=== PATIENT | female | born 1980 | race Caucasian/White ===

== ENCOUNTER 2016-04-22 17:31 | Inpatient (IN) | payer OTHER ==
[~2016-04-22] VITALS: Ht 175.3 cm; Wt 123.9 kg
--- NOTE | 2016-04-22 20:18 | ED ORDER SUMMARY ---
..... Patient: ANISH BARRERA OrderSheet [facility] VisitID: [id number] Rowena Reyes [place], [place] [id number], F Registration Date/Time: 04/22/2016 ORDER SHEET Weight: 120.2 kg (stated) Allergies: No Known Drug Allergy GENERAL ORDERS: US Abdomen Limited (No) Urgent (18:03 04/22/2016 Sidney Figueroa) (Ack 18:08 Monsterner) (19:37 Eleno) CBC w Diff Urgent (18:04 04/22/2016 Sidney Figueroa) (Ack 18:08 Kishor) (18:19 SRoberts R.N.) CMP Urgent (18:04 04/22/2016 Sidney Figueroa) (Ack 18:08 Kishor) (18:19 SRoberts R.N.) UA-Culture if indicated Urgent (18:04 04/22/2016 Sidney Figueroa) (Ack 18:08 Kishor) (19:31 [facility]) PT with INR Urgent (18:04 04/22/2016 Sidney Figueroa) (Ack 18:08 Kishor) (18:19 SRoberts R.N.) Lipase Urgent (18:04 04/22/2016 Sidney Figueroa) (Ack 18:08 Kishor) (18:19 SRoberts R.N.) Serum Quantitative Urgent (18:04 04/22/2016 Sidney Figueroa) (Ack 18:08 Kishor) (18:19 SRoberts R.N.) Pulse oximeter (18:04 04/22/2016 Sidney Figueroa) (Ack 18:08 Delrner) (19:20 SRoberts R.N.) MEDICATION ORDERS: IV FLUIDS: IV NS : initial bolus 1000 mL (1000 mL/hr), then none - for X1 (NOW) (18:03 04/22/2016 Sidney Figueroa) (Ack 18:09 SRoberts R.N.) (18:20 SRoberts R.N.) Morphine IV 4 mg (HIGH ALERT MEDICATION, NOW) (18:04 04/22/2016 Sidney Figueroa) (Ack 18:09 oberts R.N.) (18:21 SRoberts R.N.) Zofran IV 4 mg (NOW) (18:04 04/22/2016 Sidney Figueroa) (Ack 18:09 oberts R.N.) (18:20 SRoberts R.N.) IV NS : initial bolus 1000 mL (1000 mL/hr), then none - for X1 (NOW) (19:55 04/22/2016 Sidney Figueroa) (20:36 SRoberge R.N.) Morphine IV 4 mg (HIGH ALERT MEDICATION, NOW) (19:55 04/22/2016 Sidney Figueroa) (20:37 SRoberts R.N.) ORDER SHEET NOTES: [Electronically signed by Lelia Holley R.N. (22:27 04/22/2016)] [Electronically signed by Marck Montoya Dr. (05:17 04/24/2016)] [Electronically locked/signed by Lelia Holley R.N. (22:27 04/22/2016)]
--- NOTE | 2016-04-22 20:18 | ED CLINICAL REPORT ---
Clinical Report - Physicians/Mid Levels [facility] [address] [place] [address] 04/22/2016 17:33 Patient: ANISH BARRERA Arrived- By private vehicle. Historian- patient. HISTORY OF PRESENT ILLNESS Chief Complaint: ABDOMINAL PAIN. At its maximum, severity described as severe. When seen in the E.D., severity described as severe. Modifying factors- worsened by movement. Relieved by rest. This started today and is still present and worsening. It was abrupt in onset and has been constant but is not gone now. It is described as sharp. No radiation. It is described as located in the right upper quadrant. The patient has had nausea. No loss of appetite or vomiting. No additional abdominal pain. No recent travel. Similar symptoms previously: Once. Recent medical care: Not recently seen/assessed. REVIEW OF SYSTEMS No constipation, black stools, hematemesis, bloody stools or skin rash. All systems otherwise negative, except as recorded above. PAST HISTORY See nurses notes. Medications: Clindamycin HCl Oral 300 mg, 4x a day. Lisinopril Oral 5 mg, daily. Glimepiride Oral (Tablet 4 mg) 1 tablet, day. MetFORMIN HCl Oral 1000mg bid . Allergies: No Known Drug Allergy. SOCIAL HISTORY Never smoker. No alcohol use or drug use. No recent travel. Is a local resident. FAMILY HISTORY Negative. ADDITIONAL NOTES The nursing notes have been reviewed. PHYSICAL EXAM Vital Signs: 04/22/2016 17:45 BP: 153/74. HR: 85. RR: 20. O2 saturation: 100%. Temp: 98.6 F. Pain level now: 9/10. Blood pressure normal. Oxygen saturation normal. Appearance: Alert. Oriented X3. Patient in mild distress. Eyes: Pupils equal, round and reactive to light. Eyes normal inspection. ENT: Pharynx normal. No pharyngeal erythema or tonsillar exudate. The mucous membranes are not dry. Neck: Normal inspection. CVS: Normal heart rate and rhythm. Heart sounds normal. Pulses normal. Respiratory: No respiratory distress. Breath sounds normal. Chest nontender. Abdomen: Soft. Moderate tenderness in the right upper quadrant. Bowel sounds normal. No mass. Back: Normal inspection. Skin: Skin warm and dry. Normal skin color. No rash. Normal skin turgor. Extremities: Extremities exhibit normal ROM. No lower extremity edema. LABS, X-RAYS, AND EKG Abdominal Sonogram: (cholelithiasis without cholecystitis. CBD not completely visualized but likley not dilated.). The study was independently viewed by me, interpreted contemporaneously by me and limited due to obesity. Study included the gallbladder. Laboratory Tests: UA-Culture if indicated: (MEKHI: 04/22/2016 19:30) ( [facility] 04/22/2016 19:54) IP Test Result Flag Units (Reference) URINE COLOR YELLOW URINE APPEARANCE CLEAR URINE GLUCOSE TRACE (NEGATIVE) URINE BILIRUBIN NEGATIVE (NEGATIVE) URINE KETONE NEGATIVE (NEGATIVE) URINE SPECIFIC GRAVITY >= 1.030 (1.010-1.030) URINE PH 6.0 (5.0-8.0) URINE PROTEIN NEGATIVE (NEGATIVE) URINE UROBILINOGEN 0.2 EU/dL (0.2-1.0) URINE NITRITE NEGATIVE (NEGATIVE) URINE BLOOD NEGATIVE (NEGATIVE) URINE LEUK ESTERASE NEGATIVE (NEGATIVE) CBC w Diff: (MEKHI: 04/22/2016 18:25) ( [facility] 04/22/2016 19:05) Final results Test Result Flag Units (Reference) WHITE BLOOD COUNT 8.0 K/uL (4.5-11.5) RED BLOOD COUNT 5.03 M/uL (4.00-5.20) HEMOGLOBIN 15.6 gm/dL (12.0-16.0) HEMATOCRIT 46.2 H % (36.0-46.0) MEAN CELL VOLUME 92 fL (80-100) MEAN CORPUSCULAR HGB 31 pg (26-34) MEAN CORPUSCULAR HGB CONC 34 g/dL (31-37) RED CELL DISTRIBUTION WIDTH 14.9 H % (11.6-14.8) PLATELET COUNT 452 H K/uL (150-400) NEUTROPHIL % 52.0 % (50-75) LYMPH % 35.8 % (25-40) MONO % 8.9 % (3-14) EOSINOPHIL % 2.2 % (0-4) BASOPHIL % 1.1 % (0-2) PT with INR: (MEKHI: 04/22/2016 18:25) ( MsgRcvd 04/22/2016 19:16) Final results Test Result Flag Units (Reference) INR 1.1 (0.8-1.2) Low Intensity Therapy: INR 1.5-2.0 PT range 18.5-23.1Mod.Intensity Therapy: INR 2.0-3.0 PT range 23.1-31.5High Intensity Therapy: INR 2.5-3.5 PT range 27.4-35.5High Intensity Therapy 2: INR 3.0-4.0 PT range 31.5-39.3 CMP: (MEKHI: 04/22/2016 18:25) ( MsgRcvd 04/22/2016 19:20) Final results Test Result Flag Units (Reference) GLUCOSE 207 H mg/dL (70-110) BUN 10 mg/dL (7-18) CREATININE 0.8 mg/dL (0.6-1.3) Estimated GFR >60 mL/min Estimated GFR- >60 mL/min Note: Persistent reduction over 3 months in eGFR<60 mL/min/1.73 m2 defines CKD. Patients with eGFR values>=60 mL/min/1.73 m2 may also have CKD if evidence ofpersistent proteinuria. Additional information may be foundat www.kidney.org. SODIUM 137 mmol/L (136-145) POTASSIUM 4.1 mmol/L (3.5-5.1) CHLORIDE 102 mmol/L (98-107) CARBON DIOXIDE 22 mmol/L (21-32) CALCIUM 9.1 mg/dL (8.5-10.1) TOTAL PROTEIN 7.7 g/dL (6.4-8.2) ALBUMIN 3.6 g/dL (3.3-5.0) BILIRUBIN, TOTAL 0.2 mg/dL (0.0-1.0) ALKALINE PHOSPHATASE 82 U/L (46-116) AST (SGOT) 59 H U/L (15-37) ALT (SGPT) 61 U/L (12-78) LIPASE 1772 H U/L (73-393) BETA HCG, QUANTITATIVE <1 mIU/mL REFERENCE RANGE:Adult Males: <2 mIU/mLNon- Females: <6 mIU/mL Females:Approximate Approximate hCGGestational Age Range (mIU/mL) 0-1 week 0-501-2 weeks 40-3002-3 weeks 100-88907-7 weeks 500-51116-0 months 5,000-200,0002-3 months 10,000-100,0002nd trimester 3,000-50,0003rd trimester 1,000-50,000 . PROGRESS AND PROCEDURES Course of Care: the patient is a pleasant 36-year-old female presenting for evaluation of right upper quadrant abdominal pain. Patient is in a mild amount of distress however does not appear toxic. At this time differential diagnosis includes acute cholecystitis,acute pancreatitis,and renal colic/pyelonephritis. Pain medication as well as nausea medicationwith laboratory studies and imaging at been ordered. Patient is agreeable to the treatment and plan. Ultrasound would be the test of choice at this time asbiliary pathology is the highest on the differential diagnosis. Workup shows patient is to have elevation in lipase. Pain has been improved while here in the emergency department. Went to evaluate the patient however patient still appears to be mildly uncomfortable. Had a long discussion with patient in regards to pancreatitis andgeneral management of this disease entity. The patient was encouraged to be admitted to the hospital forIV hydration and bowel rest. Eventually, patient was agreeable to the treatment and plan. Discussed with patient workup and diagnosis here in the emergency department as well as plan of care. All questions have been answered. Discussed case with the hospitalist who will admit the patient. No further recommendations given Patient will be treated aggressively with hydration as well as bowel rest. No evidence ofacute cholecystitis on ultrasound. No evidence of ascending cholangitisin addition toultrasound results. Disposition: Observation in Acute Care. CLINICAL IMPRESSION acute pancreatitis acute nausea and vomiting cholelithiasis without cholecystitis. (Electronically signed by Marck Montoya Dr. 04/24/2016 5:17)
--- NOTE | 2016-04-22 20:18 | ED CLINICAL REPORT ---
Clinical Report - Physicians/Mid Levels [facility] [address] [place] [address] 04/22/2016 17:33 Patient: ANISH BARRERA Arrived- By private vehicle. Historian- patient. HISTORY OF PRESENT ILLNESS Chief Complaint: ABDOMINAL PAIN. At its maximum, severity described as severe. When seen in the E.D., severity described as severe. Modifying factors- worsened by movement. Relieved by rest. This started today and is still present and worsening. It was abrupt in onset and has been constant but is not gone now. It is described as sharp. No radiation. It is described as located in the right upper quadrant. The patient has had nausea. No loss of appetite or vomiting. No additional abdominal pain. No recent travel. Similar symptoms previously: Once. Recent medical care: Not recently seen/assessed. REVIEW OF SYSTEMS No constipation, black stools, hematemesis, bloody stools or skin rash. All systems otherwise negative, except as recorded above. PAST HISTORY See nurses notes. Medications: Clindamycin HCl Oral 300 mg, 4x a day. Lisinopril Oral 5 mg, daily. Glimepiride Oral (Tablet 4 mg) 1 tablet, day. MetFORMIN HCl Oral 1000mg bid . Allergies: No Known Drug Allergy. SOCIAL HISTORY Never smoker. No alcohol use or drug use. No recent travel. Is a local resident. FAMILY HISTORY Negative. ADDITIONAL NOTES The nursing notes have been reviewed. PHYSICAL EXAM Vital Signs: 04/22/2016 17:45 BP: 153/74. HR: 85. RR: 20. O2 saturation: 100%. Temp: 98.6 F. Pain level now: 9/10. Blood pressure normal. Oxygen saturation normal. Appearance: Alert. Oriented X3. Patient in mild distress. Eyes: Pupils equal, round and reactive to light. Eyes normal inspection. ENT: Pharynx normal. No pharyngeal erythema or tonsillar exudate. The mucous membranes are not dry. Neck: Normal inspection. CVS: Normal heart rate and rhythm. Heart sounds normal. Pulses normal. Respiratory: No respiratory distress. Breath sounds normal. Chest nontender. Abdomen: Soft. Moderate tenderness in the right upper quadrant. Bowel sounds normal. No mass. Back: Normal inspection. Skin: Skin warm and dry. Normal skin color. No rash. Normal skin turgor. Extremities: Extremities exhibit normal ROM. No lower extremity edema. LABS, X-RAYS, AND EKG Abdominal Sonogram: (cholelithiasis without cholecystitis. CBD not completely visualized but likley not dilated.). The study was independently viewed by me, interpreted contemporaneously by me and limited due to obesity. Study included the gallbladder. Laboratory Tests: UA-Culture if indicated: (MEKHI: 04/22/2016 19:30) ( [facility] 04/22/2016 19:54) IP Test Result Flag Units (Reference) URINE COLOR YELLOW URINE APPEARANCE CLEAR URINE GLUCOSE TRACE (NEGATIVE) URINE BILIRUBIN NEGATIVE (NEGATIVE) URINE KETONE NEGATIVE (NEGATIVE) URINE SPECIFIC GRAVITY >= 1.030 (1.010-1.030) URINE PH 6.0 (5.0-8.0) URINE PROTEIN NEGATIVE (NEGATIVE) URINE UROBILINOGEN 0.2 EU/dL (0.2-1.0) URINE NITRITE NEGATIVE (NEGATIVE) URINE BLOOD NEGATIVE (NEGATIVE) URINE LEUK ESTERASE NEGATIVE (NEGATIVE) CBC w Diff: (MEKHI: 04/22/2016 18:25) ( [facility] 04/22/2016 19:05) Final results Test Result Flag Units (Reference) WHITE BLOOD COUNT 8.0 K/uL (4.5-11.5) RED BLOOD COUNT 5.03 M/uL (4.00-5.20) HEMOGLOBIN 15.6 gm/dL (12.0-16.0) HEMATOCRIT 46.2 H % (36.0-46.0) MEAN CELL VOLUME 92 fL (80-100) MEAN CORPUSCULAR HGB 31 pg (26-34) MEAN CORPUSCULAR HGB CONC 34 g/dL (31-37) RED CELL DISTRIBUTION WIDTH 14.9 H % (11.6-14.8) PLATELET COUNT 452 H K/uL (150-400) NEUTROPHIL % 52.0 % (50-75) LYMPH % 35.8 % (25-40) MONO % 8.9 % (3-14) EOSINOPHIL % 2.2 % (0-4) BASOPHIL % 1.1 % (0-2) PT with INR: (MEKHI: 04/22/2016 18:25) ( MsgRcvd 04/22/2016 19:16) Final results Test Result Flag Units (Reference) INR 1.1 (0.8-1.2) Low Intensity Therapy: INR 1.5-2.0 PT range 18.5-23.1Mod.Intensity Therapy: INR 2.0-3.0 PT range 23.1-31.5High Intensity Therapy: INR 2.5-3.5 PT range 27.4-35.5High Intensity Therapy 2: INR 3.0-4.0 PT range 31.5-39.3 CMP: (MEKHI: 04/22/2016 18:25) ( MsgRcvd 04/22/2016 19:20) Final results Test Result Flag Units (Reference) GLUCOSE 207 H mg/dL (70-110) BUN 10 mg/dL (7-18) CREATININE 0.8 mg/dL (0.6-1.3) Estimated GFR >60 mL/min Estimated GFR- >60 mL/min Note: Persistent reduction over 3 months in eGFR<60 mL/min/1.73 m2 defines CKD. Patients with eGFR values>=60 mL/min/1.73 m2 may also have CKD if evidence ofpersistent proteinuria. Additional information may be foundat www.kidney.org. SODIUM 137 mmol/L (136-145) POTASSIUM 4.1 mmol/L (3.5-5.1) CHLORIDE 102 mmol/L (98-107) CARBON DIOXIDE 22 mmol/L (21-32) CALCIUM 9.1 mg/dL (8.5-10.1) TOTAL PROTEIN 7.7 g/dL (6.4-8.2) ALBUMIN 3.6 g/dL (3.3-5.0) BILIRUBIN, TOTAL 0.2 mg/dL (0.0-1.0) ALKALINE PHOSPHATASE 82 U/L (46-116) AST (SGOT) 59 H U/L (15-37) ALT (SGPT) 61 U/L (12-78) LIPASE 1772 H U/L (73-393) BETA HCG, QUANTITATIVE <1 mIU/mL REFERENCE RANGE:Adult Males: <2 mIU/mLNon- Females: <6 mIU/mL Females:Approximate Approximate hCGGestational Age Range (mIU/mL) 0-1 week 0-501-2 weeks 40-3002-3 weeks 100-02903-0 weeks 500-80511-5 months 5,000-200,0002-3 months 10,000-100,0002nd trimester 3,000-50,0003rd trimester 1,000-50,000 . PROGRESS AND PROCEDURES Course of Care: the patient is a pleasant 36-year-old female presenting for evaluation of right upper quadrant abdominal pain. Patient is in a mild amount of distress however does not appear toxic. At this time differential diagnosis includes acute cholecystitis,acute pancreatitis,and renal colic/pyelonephritis. Pain medication as well as nausea medicationwith laboratory studies and imaging at been ordered. Patient is agreeable to the treatment and plan. Ultrasound would be the test of choice at this time asbiliary pathology is the highest on the differential diagnosis. Workup shows patient is to have elevation in lipase. Pain has been improved while here in the emergency department. Went to evaluate the patient however patient still appears to be mildly uncomfortable. Had a long discussion with patient in regards to pancreatitis andgeneral management of this disease entity. The patient was encouraged to be admitted to the hospital forIV hydration and bowel rest. Eventually, patient was agreeable to the treatment and plan. Discussed with patient workup and diagnosis here in the emergency department as well as plan of care. All questions have been answered. Discussed case with the hospitalist who will admit the patient. No further recommendations given Patient will be treated aggressively with hydration as well as bowel rest. No evidence ofacute cholecystitis on ultrasound. No evidence of ascending cholangitisin addition toultrasound results. Disposition: Observation in Acute Care. CLINICAL IMPRESSION acute pancreatitis acute nausea and vomiting cholelithiasis without cholecystitis. (Electronically signed by Marck Montoya Dr. 04/24/2016 5:17)
--- NOTE | 2016-04-22 20:18 | ED NURSING NOTES ---
Clinical Report - Nurses [facility] [address] [place] [address] 04/22/2016 17:33 Patient: ANISH BARRERA TRIAGE Triage time 17:42. Acuity: LEVEL 3. Chief Complaint: ABDOMINAL PAIN and NAUSEA. Alert. No acute distress. NEFTALI COMA SCORE: Neftali Coma Scale: 15- eyes open spontaneously (4); best verbal response- oriented x 4 (5); best motor response- obeys commands (6). --17:52 Lelia Holley R.N. 17:45 04/22/16. BP: 153/74. HR: 85. RR: 20. O2 saturation: 100%. Temp: 98.6 F. Pain level now: 9/10. --17:52 Lelia Holley R.N. 17:45 04/22/16. BP: 153/74. HR: 85. RR: 20. O2 saturation: 100%. Temp: 98.6 F. Pain level now: 9/10. --17:52 Lelia Holley R.N. Weight: 120.2 kg stated. Height/Length: 69 inches Per Patient. BMI: 39.2. --17:51 Lelia Holley R.N. Medications MetFORMIN HCl Oral 1000mg bid . --17:46 Lelia Holley R.N. Glimepiride Oral (Tablet 4 mg) 1 tablet, day. --17:47 Lelia Holley R.N. Lisinopril Oral 5 mg, daily. --17:48 Lelia Holley R.N. Clindamycin HCl Oral 300 mg, 4x a day. --17:49 Lelia Holley R.N. Medication/allergy information source: the patient. --17:52 Lelia Holley R.N. Allergies No Known Drug Allergy. --17:48 Lelia Holley R.N. History Arrived by private vehicle. Historian: patient and family. Accompanied by family. Primary physician (lisseth). This started today. She has had nausea and abdominal pain. No vomiting, diarrhea or constipation. Last oral intake by patient was today 1 hour ago. Treatment [employer]: Took ibuprofen. (vicodin at 1500). PAST MEDICAL HX: Diabetes mellitus. Immunizations: status is unknown. Last normal menstrual period- Apr 07. ( htn, gall stones). SURGERY HX: . SOCIAL HX: Never smoker. No alcohol use or drug use. FALL RISK ASSESSMENT: Fall risk assessment completed. No fall risk identified. NUTRITIONAL RISK ASSESSMENT: The nutritional risk assessment revealed no deficiencies. FUNCTIONAL ASSESSMENT: Functional assessment: no impairments noted. LEARNING NEEDS ASSESSMENT: The learning needs assessment revealed no barriers. SKIN INTEGRITY ASSESSMENT: Skin integrity risk assessment completed. No skin integrity risk identified. --17:52 Lelia Holley R.N. Interventions ID band on patient. To room. --17:52 Lelia Holley R.N. PHYSICAL ASSESSMENT Ambulatory to room. Patient gowned. GENERAL / NEURO / PSYCH: Alert. Oriented X 4. Appears in pain and anxious. HEENT: Mucous membranes are pink. RESPIRATORY: Respirations not labored. CVS: Capillary refill less than 2 seconds. GI / : Abdominal tenderness. SKIN: Skin is warm and dry. --17:53 Lelia Holley R.N. NURSING PROGRESS NOTES Patient gowned. Head of bed elevated. Two patient identifiers checked. Call light placed in reach. Side rails up x 1. Bed placed in lowest position. Brakes of bed on. Patient ready for evaluation- chart flagged. --17:53 Lelia Holley R.N. 18:15 04/22/2016 Site #1 started via IV in the right antecubital space with an 20g angiocath, with aseptic technique and good blood return; one attempt. Blood drawn: rainbow set. Labeled in the presence of the patient and sent to the lab. Saline lock flushed with saline. --18:20 Lelia Holley R.N. 18:15 04/22/2016 Morphine IVP 4 mg given over 1 minute(s) via site #1. Allergies verified, confirmed 5 rights and sedative warning given to the patient. IV patency established. IV site checked: no pain, redness, or swelling. IV flushed thoroughly pre- and post-medication administration. IVP given by RN. --18:21 Lelia Holley R.N. 18:20 04/22/2016 Started bag #1 1000 mL IV Fluids IV NS (Saline); at 1000 mL/hr over 1 hour(s) via site #1 via IV pump. Allergies verified and confirmed 5 rights. IV patency established. IV site checked: no pain, redness, or swelling. IV flushed thoroughly pre- and post-medication administration. --18:20 Lelia Holley R.N. 18:20 04/22/2016 Zofran (Ondansetron HCl) IVP 4 mg given over 1 minute(s) via site #1. Allergies verified and confirmed 5 rights. IV patency established. IV site checked: no pain, redness, or swelling. IV flushed thoroughly pre- and post-medication administration. --18:20 Lelia Holley R.N. 19:25 04/22/2016 IV Fluids IV NS Discontinued: bag #1 infused. Total amount infused: 1000 mL. IV patency established. IV site checked: no pain, redness, or swelling. IV flushed thoroughly. --20:14 Lelia Holley R.N. 19:32 04/22/16. Patient ID band checked for patient name: patient confirmed. Instructions provided to collect clean catch urine and patient verbalized understanding. Clean catch urine collected with return of yellow-colored clear urine; sample sent to lab for urinalysis and culture. Specimen labeled in the presence of the patient. --19:32 Lelia Holley R.N. 20:32 04/22/2016 Morphine IVP 4 mg given over 1 minute(s) via site #1. Allergies verified, confirmed 5 rights and sedative warning given to the patient. IV patency established. IV site checked: no pain, redness, or swelling. IV flushed thoroughly pre- and post-medication administration. IVP given by RN. --20:37 Lelia Holley R.N. 20:36 04/22/2016 Started bag #1 1000 mL IV Fluids IV NS (Saline); at 200 mL/hr over 5 hour(s) via site #1 via IV pump. Allergies verified and confirmed 5 rights. IV patency established. IV site checked: no pain, redness, or swelling. IV flushed thoroughly pre- and post-medication administration. --20:36 Lelia Holley R.N. ( Dr at the bedside speaking with the patient.). --20:40 Lelia Holley R.N. 20:50 04/22/16. BP: 147/66. HR: 94. RR: 18. O2 saturation: 98% on room air. Pain level now: 08/27. --20:51 Lelia Holley R.N. 21:27 04/22/16. ( Attempted to give report, nurse unavailable.). --21:27 Lelia Holley R.N. 21:35 04/22/2016 Site #[address] upon admission; patent, no pain and no signs of infection or infiltration. Good blood return present; flushes easily. --21:35 Lelia Holley R.N. 21:35 04/22/2016 IV Fluids IV NS Continued: at the rate of 200 mL/hr. 800 mL remaining bag #2. IV patency established. IV site checked: no pain, redness, or swelling. IV flushed thoroughly. --21:35 Lelia Holley R.N. DISPOSITION / DISCHARGE Patient's personal items include: shirt, pants, undergarments, socks, shoes, glasses, jewelry and purse; items were placed in belongings bag and transported with the patient. Collection of belongings was witnessed by 1 nurse. --21:23 Lelia Holley R.N. 21:23 04/22/16. BP: 129/78. HR: 88. RR: 18. O2 saturation: 99% on room air. Pain level now: 05/28. 20:50 04/22/16. BP: 147/66. HR: 94. RR: 18. O2 saturation: 98% on room air. Pain level now: 08/27. 17:45 04/22/16. BP: 153/74. HR: 85. RR: 20. O2 saturation: 100%. Temp: 98.6 F. Pain level now: 10/28. --21:24 Lelia Holley R.N. Admitted to Acute Care. --21:24 Lelia Holley R.N. Report was given to a nurse via a phone call. Report included patient's care, treatment, medications, reviewed medication reconcilliation, and condition (including any recent changes or anticipated changes). Report was acknowledged and care was transferred. (JONATHAN Lund). --21:34 Lelia Holley R.N. Locked/Released at 04/22/2016 22:27 by Lelia Holley R.N.
--- NOTE | 2016-04-22 20:18 | ED ORDER SUMMARY ---
..... Patient: ANISH BARRERA OrderSheet [facility] VisitID: [id number] [address] Reyes [place], [place] [id number] 36y, F Registration Date/Time: 04/22/2016 ORDER SHEET Weight: 120.2 kg (stated) Allergies: No Known Drug Allergy GENERAL ORDERS: US Abdomen Limited (No) Urgent (18:03 04/22/2016 Sidney Figueroa) (Ack 18:08 Monsterner) (19:37 Eleno) CBC w Diff Urgent (18:04 04/22/2016 Sidney Figueroa) (Ack 18:08 Kishor) (18:19 SRoberts R.N.) CMP Urgent (18:04 04/22/2016 Sidney Figueroa) (Ack 18:08 Kishor) (18:19 SRoberts R.N.) UA-Culture if indicated Urgent (18:04 04/22/2016 Sidney Figueroa) (Ack 18:08 Kishor) (19:31 [facility] [employer]) PT with INR Urgent (18:04 04/22/2016 Sidney Figueroa) (Ack 18:08 Kishor) (18:19 SRoberts R.N.) Lipase Urgent (18:04 04/22/2016 Sidney Figueroa) (Ack 18:08 Kishor) (18:19 SRoberts R.N.) Serum Quantitative Urgent (18:04 04/22/2016 Sidney Figueroa) (Ack 18:08 Kishor) (18:19 SRoberts R.N.) Pulse oximeter (18:04 04/22/2016 Sidney Figueroa) (Ack 18:08 Delrner) (19:20 SRoberts R.N.) MEDICATION ORDERS: IV FLUIDS: IV NS : initial bolus 1000 mL (1000 mL/hr), then none - for X1 (NOW) (18:03 04/22/2016 Sidney Figueroa) (Ack 18:09 SRoberts R.N.) (18:20 SRoberts R.N.) Morphine IV 4 mg (HIGH ALERT MEDICATION, NOW) (18:04 04/22/2016 Sidney Figueroa) (Ack 18:09 oberts R.N.) (18:21 SRoberts R.N.) Zofran IV 4 mg (NOW) (18:04 04/22/2016 Sidney Figueroa) (Ack 18:09 oberts R.N.) (18:20 SRoberts R.N.) IV NS : initial bolus 1000 mL (1000 mL/hr), then none - for X1 (NOW) (19:55 04/22/2016 Sidney Figueroa) (20:36 SRoberge R.N.) Morphine IV 4 mg (HIGH ALERT MEDICATION, NOW) (19:55 04/22/2016 Sidney Figueroa) (20:37 SRoberts R.N.) ORDER SHEET NOTES: [Electronically signed by Lelia Holley R.N. (22:27 04/22/2016)] [Electronically signed by Marck Montoya Dr. (05:17 04/24/2016)] [Electronically locked/signed by Lelia Holley R.N. (22:27 04/22/2016)]
--- NOTE | 2016-04-22 21:14 | History & Physical Report ---
Information Source Information Source: Self, Spouse/Partner Reliability: Good History Chief Complaint abdominal pain History of Present Illness Patient is a 36 year old female that is presenting with a one day history of abdominal pain. Patient had been in her usual state of health when she had a sudden increase in abdominal pain with no real inciting factor. Patient had been recently diagnosed with gallstones in [facility] and the patient and her doctors thought it would be best if the patient had her gallbladder removed. Patient was in the process of changing her residence therefore she decided to postpone the surgery for a later date. Patient was not having any problems since her last surgery appointment and was doing relatively well. However yesterday she had a sudden onset of abdominal pain that was later followed by anorexia, nausea, and vomiting. Patient then felt like she was very drained and did not have any energy. Patient has no other complaints at the moment and is otherwise hemodynamically stable. Patient History 1. Nausea and vomiting 2. Gallstone 3. Diabetes mellitus Social History Patient is a 36 year old female who lives with her and daughter. She is a security surveillance personnel. Patient does not smoke, drinks socially and does not use any illicit substances. Patient is up to date on all her health maintenance visits except for vision. Family History Family history was reviewed; no changes noted. Advance Directive None Medications and Allergies Medications Home Medications Metformin 1000 mg bid Glyburide Lisinopril 5 mg daily Lantus 15 units qpm Current Medications Sig/Vitaliy Start time Last Medication Dose Route Stop Time Status Admin Lisinopril 5 MG DAILY 04/23 0900 AC PO Insulin Human Lispro See Dose ACHS 04/23 0730 AC Insts (1) SC Pantoprazole Sodium 40 MG DAILY@0600 04/23 0600 AC 04/23 IV 0621 Clindamycin HCl 300 MG Q6HR 04/23 0015 AC 04/23 PO 0621 Acetaminophen 650 MG Q6H PRN 04/22 2114 AC PO Morphine Sulfate 1 MG Q4H PRN 04/22 2114 AC IV Ondansetron HCl 4 MG Q6H PRN 04/22 2114 AC PO Sodium Chloride 1,000 ML ASDIRECTED 04/22 2114 AC 04/23 IV 0236 Dose Instructions: (1)Insulin Human Lispro: LOW DOSE: ACCUCHECK AND SLIDING SCALE >>To change sliding scale DISCONTINUE this order and enter a NEW order. Thanks< Allergies Coded Allergies: NKA (04/22/16) Review of Systems Constitutional Malaise. Denies: Fever, Chills, Sweats, Weakness, Other. Eyes Denies: Pain, Vision Change, Conjunctival Inflammation, Eyelid Inflammation, Redness, Other. ENT Denies: Ear Pain, Ear Discharge, Nose Pain, Nasal Discharge, Nasal Congestion, Mouth Pain, Mouth Swelling, Throat Pain, Throat Swelling, Other. Respiratory Denies: Cough, Dry, SOB w/exertion, Wheezing, Hemoptysis, Pleuritic Pain, Sputum , Other. Cardiovascular Denies: Chest Pain, Palpitations, Orthopnea, PND, Edema, Light-headedness, Other. Gastrointestinal Nausea, Vomiting, Abdominal Pain. Denies: Diarrhea, Constipation, Melena, Hematochezia, Other. Genitourinary Denies: Dysuria, Frequency, Incontinence, Hematuria, Retention, Other. Musculoskeletal Denies: Neck Pain, Shoulder Pain, Arm Pain, Back Pain, Hand Pain, Leg Pain, Foot Pain, Other. Skin Denies: Rash, Lesions, Jaundice, Bruising, Other. Neurological Denies: Weakness, Numbness, Incoordination, Change in speech, Confusion, Seizures, Other. Physical Exam Vital Signs / I&Os Vital Signs Date Time Temp Pulse Resp B/P Pulse O2 O2 Flow FiO2 Ox Delivery Rate 04/23 0706 97.9 85 16 134/79 95 Room Air 0.0 04/23 0158 98.1 75 16 138/79 95 Room Air 04/22 2157 98.1 77 16 173/92 96 Room Air I&O 04/22 0800 / 1600 04/23 0000 Intake Total Output Total Balance General Appearance Alert, Oriented X3, No acute distress HEENT Normal exam, Atraumatic, Moist mucous membranes Lungs Clear to auscultation, Normal air movement Neck Supple, No JVD, No thyromegaly, No lymphadenopathy, 2+ carotid pulse wo bruit Cardiovascular Regular rate and rhythm, Normal S1 and S2, No murmurs, gallops, rubs Abdomen Normal bowel sounds, Soft, No tenderness, No guarding, No rebound Extremities No cyanosis, No clubbing, No edema, Normal pulses, No tenderness, Strength = upper ext's, Strength = lower ext's Skin No Rashes, No Breakdown Neurological Normal gait, Normal speech, Sensation intact, Reflexes 2+ and equal , Strength 5/5 x4 ext's Psych/Mental Status Mental status normal, Mood normal Assessment and Plan Problem List 1. Acute pancreatitis Plan - patient has evidnece of elevaed lipase with clinical signs of pancreatitis will treat her for the same - given bili, ast, alt and alk phos it is unlikely that the patient has retained gallstone - will keep pt npo, will give liberal iv fluids - will continue to trend lipase 2. Nausea and vomiting Plan - secondary to pancreatitis - will keep pt npo and have anti emetics on board 3. Diabetes mellitus Plan - Pt has an established diangosis of diabetesl mellitus - will hold off metformin and glyburide until pancrease is less inflammed - will hold off on lantus dose given npo status - sliding scale coverage while in patient 4. Gallstone Plan - Pt has a history of gallstones with us evidence of gallstones - will continue to monitor lfts - will put consult in cholecystectomy once pancreatitis is resolved 5. Hypertension Plan - established - will continue home dose of linsinopril 5 mg
--- NOTE | 2016-04-22 21:26 | DIAGNOSTIC IMAGING REPORT ---
PROCEDURE: US ABDOMEN ULTRASOUND-LIMITED INDICATION: RUQ ABDO PAIN TECHNIQUE: Ortega scale and color Doppler sonographic images were obtained of the right upper quadrant. COMPARISON: None. FINDINGS: The liver is normal in size, contour, and echotexture. No mass or biliary dilatation. The gallbladder wall is normal thickness measuring 2.1 mm. The gallbladder is distended and contains dependently layering sludge and granular hyperechoic material, either tiny stones or hyperechoic bile. No pericholecystic fluid or Levine's sign. The common duct is normal caliber and 4.2 mm. No evidence of choledocholithiasis. The visible portion of the inferior vena cava, abdominal aorta, and portal vein appear normal with appropriate direction of flow in the portal vein. The right kidney is normal measuring 14.1 x 5.4 x 6.3 cm. No free fluid in the right upper quadrant. IMPRESSION: 1. No sonographic evidence of acute cholecystitis. 2. Dependently layering, nonobstructive gallbladder sludge and likely small stones or hyperechoic bile.
[2016-04-22 21:57] VITALS: BP 173/92
[2016-04-22] MEDS ORDERED: PRINIVIL5 MG PO (23:20)
[2016-04-22] MEDS ORDERED: GLIMEPIRIDE1 MG PO (23:22)
[2016-04-22] MEDS ORDERED: CLINDAMYCIN HC300 MG PO (23:22)
[2016-04-22] MEDS ORDERED: METFORMIN HCL500 MG PO (23:23)
[2016-04-22] MEDS ORDERED: LANTUS SOL100 UNITS/ SC (23:24)
[2016-04-23] VITALS (11 sets, daily range): BP systolic 134–160; BP diastolic 75–87
--- NOTE | 2016-04-23 14:02 | CONSULTATION REPORT ---
DATE OF CONSULTATION: 04/23/2016 CHIEF COMPLAINT: 1. Abdominal pain HISTORY OF PRESENT ILLNESS: The patient is a 36-year-old woman who presented with a 1-day history of abdominal pain. She had a previous admission elsewhere for gallstone pancreatitis, and these symptoms are very similar. This admission was in 2015. At that point, she postponed her surgery, and the symptoms have now recurred. Her lipase on admission was elevated, but her pancreatic enzymes have normalized as of today, and she was referred for consideration of surgery. At the time of onset, the patient had anorexia, nausea, and vomiting and sudden onset of pain, with lack of energy. MEDICAL/SURGICAL HISTORY: Past medical history includes diabetes mellitus. MEDICATIONS: 1. Metformin 1 g b.i.d. 2. Glyburide, dose unknown. 3. Lisinopril 5 mg daily. 4. Lantus 15 units q.p.m. ALLERGIES: 1. NONE TO MEDICATIONS. SOCIAL HISTORY: The patient lives with her and daughter. She works as a security surveillance person. She does not smoke cigarettes. She drinks socially. FAMILY HISTORY: Unchanged. There are no hereditary diseases noted. REVIEW OF SYSTEMS: A multipoint review of systems was obtained by Dr. Fischer on 04/23/2016, and is reviewed at this time. The patient reports no other symptoms other than the ones described by the patient. PHYSICAL EXAMINATION: GENERAL: The patient is alert and cooperative. Her mental status was normal. She is oriented to time and place. VITAL SIGNS: Her initial vital signs: Temperature 98.1, pulse of 81, respirations 18, blood pressure 139/79, room air saturation 97% on room air. HEENT: His ears and nose demonstrated no gross external lesions. Eyes are equal. She is anicteric. NECK: Without palpable masses or thyromegaly. CHEST: Clear, without wheeze or rales. HEART: Regular, without murmur or gallop. ABDOMEN: Reveals no localized tenderness at this point. Bowel sounds are active. She is nondistended. There was no hepatosplenomegaly. EXTREMITIES: Symmetric. She moves without restriction. LAB/IMAGING: Lab tests were reviewed. White count was 8.6 today, hemoglobin and hematocrit 10.3 and 30.8. Her glucose was 207 on admission; it is 102 at this point. Her lipase has normalized from 1772 down to 251. IMPRESSION: 1. Resolved gallstone pancreatitis PLAN: I recommended the patient undergo a laparoscopic cholecystectomy with cholangiography. I made her aware of the nature of this operation as well as alternatives, benefits and risks. Risks discussed included infection, bleeding, scars, pain, damage to local structures, common duct stones, possible postop pancreatitis or ERCP. The patient desires to proceed as described to her.
--- NOTE | 2016-04-23 14:31 | Progress Note ---
Subjective General Pt seen and examined. Patient has no complaints currently and is resting comfortably. Patients lipase has normalized overnight and she has significantly reduced abdominal pain. Given patients course, patient will go for laprascopic cholecystectomy this afternoon. Constitutional Denies: Fever, Chills, Sweats, Weakness, Malaise, Other. Eyes Denies: Pain, Vision Change, Conjunctival Inflammation, Eyelid Inflammation, Redness, Other. ENT Denies: Ear Pain, Ear Discharge, Nose Pain, Nasal Discharge, Nasal Congestion, Mouth Pain, Mouth Swelling, Throat Pain, Throat Swelling, Other. Respiratory Denies: Cough, Dry, SOB w/exertion, Wheezing, Hemoptysis, Pleuritic Pain, Sputum , Other. Cardiovascular Denies: Chest Pain, Palpitations, Orthopnea, PND, Edema, Light-headedness, Other. Gastrointestinal Denies: Nausea, Vomiting, Abdominal Pain, Diarrhea, Constipation, Melena, Hematochezia, Other. Genitourinary Denies: Dysuria, Frequency, Incontinence, Hematuria, Retention, Other. Musculoskeletal Denies: Neck Pain, Shoulder Pain, Arm Pain, Back Pain, Hand Pain, Leg Pain, Foot Pain, Other. Skin Denies: Rash, Lesions, Jaundice, Bruising, Other. Physical Exam Vital Signs / I&Os Vital Signs Date Time Temp Pulse Resp B/P Pulse O2 O2 Flow FiO2 Ox Delivery Rate 04/23 1202 98.1 81 18 139/79 97 Room Air 0.0 / 0953 95 / 0706 97.9 85 16 134/79 95 Room Air 0.0 / 0158 98.1 75 16 138/79 95 Room Air / 2157 98.1 77 16 173/92 96 Room Air I&O / 0800 03/05 1600 03/06 0000 Intake Total Output Total Balance General Appearance Alert, Oriented X3, No acute distress HEENT Atraumatic, PERRLA, EOMI, Moist mucous membranes Lungs Clear to auscultation, Normal air movement Neck Supple, No JVD, No masses, No thyromegaly, No lymphadenopathy, 2+ carotid pulse wo bruit Cardiovascular Regular rate and rhythm, Normal S1 and S2, No murmurs, gallops, rubs Abdomen Soft, No tenderness, No guarding, No rebound, No masses, No hepatosplenomegaly Extremities No cyanosis, No edema, Normal pulses, No tenderness Skin No Breakdown, No Significant Lesions Neurological Normal speech, Normal tone, Sensation intact, Cranial nerves intact , No lateralizing signs LAB Results Laboratory Tests 04/22 04/22 04/23 1825 1930 0520 Chemistry Plasma Sodium (136 - 145 mmol/L) 137 141 Plasma Potassium (3.5 - 5.1 mmol/L) 4.1 4.0 Plasma Chloride (98 - 107 mmol/L) 102 109 CO2 (Enzymatic) (21 - 32 mmol/L) 22 22 BUN (7 - 18 mg/dL) 10 5 Creatinine (0.6 - 1.3 mg/dL) 0.8 0.6 Est GFR ( Amer) (mL/min) >60 >60 Est GFR (Non-Af Amer) (mL/min) >60 >60 Glucose (70 - 110 mg/dL) 207 102 Plasma Calcium (8.5 - 10.1 mg/dL) 9.1 8.4 Plasma Magnesium (1.8 - 2.4 mg/dL) 1.7 Total Bilirubin (0.0 - 1.0 mg/dL) 0.2 0.2 AST (15 - 37 U/L) 59 41 ALT (12 - 78 U/L) 61 64 Alkaline Phosphatase (46 - 116 U/L) 82 73 Total Protein (6.4 - 8.2 g/dL) 7.7 6.5 Albumin (3.3 - 5.0 g/dL) 3.6 3.0 Lipase (73 - 393 U/L) 1772 251 Beta HCG, Quant (mIU/mL) <1 Coagulation INR (0.8 - 1.2) 1.1 Hematology WBC (4.5 - 11.5 K/uL) 8.0 8.6 RBC (4.00 - 5.20 M/uL) 5.03 3.59 Hgb (12.0 - 16.0 gm/dL) 15.6 10.3 Hct (36.0 - 46.0 %) 46.2 30.8 MCV (80 - 100 fL) 92 86 MCH (26 - 34 pg) 31 29 RDW (11.6 - 14.8 %) 14.9 15.6 Neut % (Auto) (50 - 75 %) 52.0 61.1 Lymph % (Auto) (25 - 40 %) 35.8 28.2 [place] % (Auto) (3 - 14 %) 8.9 7.9 Eos % (Auto) (0 - 4 %) 2.2 2.4 Baso % (Auto) (0 - 2 %) 1.1 0.4 Plt Count, EDTA (150 - 400 K/uL) 452 308 PUBS MCHC (31 - 37 g/dL) 34 34 Urines Urine Color YELLOW Urine Appearance CLEAR Urine pH (5.0 - 8.0) 6.0 Ur Specific [place] (1.010 - 1.030) >= 1.030 Urine Protein (NEGATIVE) NEGATIVE Urine Ketones (NEGATIVE) NEGATIVE Urine Blood (NEGATIVE) NEGATIVE Urine Nitrite (NEGATIVE) NEGATIVE Urine Bilirubin (NEGATIVE) NEGATIVE Urine Urobilinogen (0.2 - 1.0 EU/dL) 0.2 Ur Leukocyte Esterase (NEGATIVE) NEGATIVE Urine RBC (0 - 1 rbc/hpf) NONE SEEN Urine WBC (0 - 1 wbc/hpf) 0-1 Ur Epithelial Cells (0 - 5 EPI/hpf) 0-1 Urine Bacteria (NONE SEEN) NONE SEEN Urine Glucose (NEGATIVE) TRACE Urine Comment CULT NOT INDICATED Assessment and Plan Problem List 1. Acute pancreatitis Plan - resolved patient has no significant abdominal pain - will contiue to trend lfts and lipase tomorrow - will continue to monitor - will advance diet to clears when patient returns from [place] 2. Hypertension Plan - Stable - will continue to monitor - 3. Diabetes mellitus Plan - stable - will hold off of oral anti-glycemic medications for the time being - will c/w sliding scale 4. Gallstone Plan - pt has radiological evidence of gallstones, with gallstone pancreatitis. - Patient will go for lap cholecystectomy today - will follow up
--- NOTE | 2016-04-23 15:16 | DIAGNOSTIC IMAGING REPORT ---
PROCEDURE: XR INTRAOPERATIVE LAP ARCADIO INDICATION: LAP ARCADIO WITH IOC TECHNIQUE: Intraoperative fluoroscopy provided for Dr. Severino performing an intraoperative cholangiogram following cholecystectomy. Total fluoroscopy time 0.08 minute Cumulative dose 5.4 mGy. COMPARISON: Abdominal ultrasound 04/22/2016 FINDINGS: One intraoperative fluoroscopic spot images of the right upper quadrant of the abdomen demonstrate cannulation of the cystic duct stump and opacification of the intrahepatic and extrahepatic biliary tree. There are no filling defects. There is normal passage of contrast into the duodenum. IMPRESSION: 1. Negative intraoperative cholangiogram.
[2016-04-23] MEDS ORDERED: NORCO1 TA1 PO (15:42)
--- NOTE | 2016-04-23 15:43 | Provider's Discharge Care Plan ---
Problem, Goal, Plan Problem List 1. S/P laparoscopic cholecystectomy 2. Acute pancreatitis 3. Diabetes mellitus 4. Hypertension
--- NOTE | 2016-04-23 15:43 | Provider's Discharge Care Plan ---
Problem, Goal, Plan Problem List 1. S/P laparoscopic cholecystectomy 2. Acute pancreatitis 3. Diabetes mellitus 4. Hypertension
--- NOTE | 2016-04-23 16:24 | OPERATIVE REPORT ---
DATE OF SURGERY: 04/23/2016 SURGEON: Papo Castillo MD PREOPERATIVE DIAGNOSIS: 1. Cholelithiasis with gallstone pancreatitis POSTOPERATIVE DIAGNOSIS: 1. Cholelithiasis with gallstone pancreatitis PROCEDURE PERFORMED: 1. Laparoscopic cholecystectomy with cholangiography ANESTHESIA: General. INDICATIONS: The patient is a 36-year-old woman with a 1-day history of abdominal pain. This is a second attack of gallstone pancreatitis, and she had resolution of her pancreatic enzymes. SURGICAL TECHNIQUE: The patient was taken to the operating room, where a general anesthetic was administered and the patient prepped and draped in the usual sterile fashion. An orogastric tube, IV antibiotics, and sequential compression devices were in place. A local anesthetic of 0.5% Marcaine with epinephrine was utilized at each incision site and infused at the end of the operation. An intraumbilical incision was made and a Veress needle used to insufflate the abdominal cavity. A 10 mm cannula was passed, and visualization was obtained. Three additional trocars were placed. The gallbladder was elevated. The cystic duct area was circumferentially isolated. There was an unusually large node of Calot. This was dissected free and reflected inferiorly to allow access to the neck of the gallbladder. The cystic artery was also doubly clipped and divided to open this area up. A clip was placed, and an incision was made in the cystic duct. The cholangiogram catheter would not pass at that location, despite milking the duct; therefore, a site about 1 cm distal was selected. At that point, a hard black gallstone was discovered, which was milked out, and after this there was clear return of bile, and the cannula passed without difficulty. A fluoroscopic cholangiogram was carried out, which demonstrated a normal size common duct and no filling defects, with free flow into the duodenum. The cystic duct was doubly clipped and divided and the gallbladder stripped from the gallbladder fossa using electrocautery. It was placed in a specimen bag and extracted. It was found to contain innumerable small, hard black stones. The operative field was irrigated and suctioned and found to be hemostatic, with no evidence of bile leakage. Fluid was suctioned away. Marcaine was instilled, gas was evacuated, and the skin sites at the midline closed with interrupted subcuticular 4-0 Vicryl suture. Steri-Strips and dressings were placed, and the patient left the operating room in good condition. No intraoperative complications were encountered.
[2016-04-24 03:06] VITALS: BP 136/73
--- NOTE | 2016-04-24 05:17 | ED DISCHARGE INSTRUCTIONS ---
Patient: ANISH BARRERA General Instructions [facility] VisitID: [id number] [address] [place] [address] 36y, F Registration Date/Time: 04/22/2016 acute pancreatitis acute nausea and vomiting cholelithiasis without cholecystitis. (Electronically signed by Marck Montoya Dr. 04/24/2016 5:17)
--- NOTE | 2016-04-24 05:17 | ED MAR SUMMARY ---
..... Medication Administration Record [facility] [address] [place] [address] Patient: ANISH BARRERA Visit ID: [id number] 36y, F Weight: 120.2 kg Height/Length: 69 in BMI: 39.2 ALLERGIES: No Known Drug Allergy Given 18:15 04/22/2016 Lelia Holley R.N. Medication Administered: MORPHINE [IVP], Dose: 4 mg IVP over 1 minute(s), Site: #1 right AC. Medication Ordered: Morphine IV 4 mg (HIGH ALERT MEDICATION, NOW). Given 18:20 04/22/2016 Lelia Holley R.N. Medication Administered: ZOFRAN [IVP] (ONDANSETRON HCL), Dose: 4 mg IVP over 1 minute(s), Site: #1 right AC. Medication Ordered: Zofran IV 4 mg (NOW). Start 18:20 04/22/2016 Lelia Holley R.N., Stop 19:25 04/22/2016 Lelia Holley R.N. Medication Administered: IV NS (SALINE), Dose: IV Fluids over 1 hour(s), Rate: 1000 mL/hr, Dispensed: 1000 mL bag, Site: #1 right AC. Medication Ordered: IV NS : initial bolus 1000 mL (1000 mL/hr), then none - for X1 (NOW). Given 20:32 04/22/2016 Lelia Holley R.N. Medication Administered: MORPHINE [IVP], Dose: 4 mg IVP over 1 minute(s), Site: #1 right AC. Medication Ordered: Morphine IV 4 mg (HIGH ALERT MEDICATION, NOW). Start 20:36 04/22/2016 Leila Holley R.N., Continued Upon Disposition 21:35 04/22/2016 Lelia Holley R.N. Medication Administered: IV NS (SALINE), Dose: IV Fluids over 5 hour(s), Rate: 200 mL/hr, Dispensed: 1000 mL bag, Site: #1 right AC. Medication Ordered: IV NS : initial bolus 1000 mL (1000 mL/hr), then none - for X1 (NOW).
--- NOTE | 2016-04-24 05:17 | ED MED RECONCILIATION SUMMARY ---
Patient: ANISH BARRERA Medication Reconciliation Report [facility] VisitID: [id number] [address] [place] [address] 36y, F Registration Date/Time: 04/22/2016 Weight: 120.2 kg Height/Length: 69 in. BMI: 39.2 ALLERGIES: No Known Drug Allergy The patient's Home Medications are listed below: THE FOLLOWING MEDICATIONS NEED TO BE RECONCILED: Clindamycin HCl Oral 300 mg, 4x a day Glimepiride Oral (4 mg) 1 tablet, day Lisinopril Oral 5 mg, daily MetFORMIN HCl Oral 1000mg bid The source(s) of the original Home Medication information: patient The following Medications were given to the patient in the Emergency Department: IV NS IV Fluids bolus 0, then 1000 mL/hr, administered: 04/22/2016 6:20:00 PM Zofran [IVP] IVP 4 mg, administered: 04/22/2016 6:20:00 PM Morphine [IVP] IVP 4 mg, administered: 04/22/2016 6:15:00 PM IV NS IV Fluids bolus 0, then 200 mL/hr, administered: 04/22/2016 8:36:00 PM Morphine [IVP] IVP 4 mg, administered: 04/22/2016 8:32:00 PM The following Medications were prescribed to the patient: None.
--- NOTE | 2016-04-24 05:17 | ED MAR SUMMARY ---
..... Medication Administration Record [facility] [address] [place] [address] Patient: ANISH BARRERA Visit ID: [id number] 36y, F Weight: 120.2 kg Height/Length: 69 in BMI: 39.2 ALLERGIES: No Known Drug Allergy Given 18:15 04/22/2016 Lelia Holley R.N. Medication Administered: MORPHINE [IVP], Dose: 4 mg IVP over 1 minute(s), Site: #1 right AC. Medication Ordered: Morphine IV 4 mg (HIGH ALERT MEDICATION, NOW). Given 18:20 04/22/2016 Lelia Holley R.N. Medication Administered: ZOFRAN [IVP] (ONDANSETRON HCL), Dose: 4 mg IVP over 1 minute(s), Site: #1 right AC. Medication Ordered: Zofran IV 4 mg (NOW). Start 18:20 04/22/2016 Lelia Holley R.N., Stop 19:25 04/22/2016 Lelia Holley R.N. Medication Administered: IV NS (SALINE), Dose: IV Fluids over 1 hour(s), Rate: 1000 mL/hr, Dispensed: 1000 mL bag, Site: #1 right AC. Medication Ordered: IV NS : initial bolus 1000 mL (1000 mL/hr), then none - for X1 (NOW). Given 20:32 04/22/2016 Lelia Holley R.N. Medication Administered: MORPHINE [IVP], Dose: 4 mg IVP over 1 minute(s), Site: #1 right AC. Medication Ordered: Morphine IV 4 mg (HIGH ALERT MEDICATION, NOW). Start 20:36 04/22/2016 Lelia Holley R.N., Continued Upon Disposition 21:35 04/22/2016 Lelia Holley R.N. Medication Administered: IV NS (SALINE), Dose: IV Fluids over 5 hour(s), Rate: 200 mL/hr, Dispensed: 1000 mL bag, Site: #1 right AC. Medication Ordered: IV NS : initial bolus 1000 mL (1000 mL/hr), then none - for X1 (NOW).
--- NOTE | 2016-04-24 05:17 | ED MED RECONCILIATION SUMMARY ---
Patient: ANISH BARRERA Medication Reconciliation Report [facility] VisitID: [id number] [address] [place] [address] 36y, F Registration Date/Time: 04/22/2016 Weight: 120.2 kg Height/Length: 69 in. BMI: 39.2 ALLERGIES: No Known Drug Allergy The patient's Home Medications are listed below: THE FOLLOWING MEDICATIONS NEED TO BE RECONCILED: Clindamycin HCl Oral 300 mg, 4x a day Glimepiride Oral (4 mg) 1 tablet, day Lisinopril Oral 5 mg, daily MetFORMIN HCl Oral 1000mg bid The source(s) of the original Home Medication information: patient The following Medications were given to the patient in the Emergency Department: IV NS IV Fluids bolus 0, then 1000 mL/hr, administered: 04/22/2016 6:20:00 PM Zofran [IVP] IVP 4 mg, administered: 04/22/2016 6:20:00 PM Morphine [IVP] IVP 4 mg, administered: 04/22/2016 6:15:00 PM IV NS IV Fluids bolus 0, then 200 mL/hr, administered: 04/22/2016 8:36:00 PM Morphine [IVP] IVP 4 mg, administered: 04/22/2016 8:32:00 PM The following Medications were prescribed to the patient: None.
--- NOTE | 2016-04-24 05:17 | ED DISCHARGE INSTRUCTIONS ---
Patient: ANISH BARRERA General Instructions [facility] VisitID: [id number] [address] [place] [address] 36y, F Registration Date/Time: 04/22/2016 acute pancreatitis acute nausea and vomiting cholelithiasis without cholecystitis. (Electronically signed by Marck Montoya Dr. 04/24/2016 5:17)
[2016-04-24 06:49] VITALS: BP 147/75
--- NOTE | 2016-04-24 08:46 | Discharge Summary ---
Discharge Summary Report Admit Date 04/22/16 Discharge Date 04/24/16 Admission Diagnosis gallstone pancreatitis with retained gallstones Discharge Diagnosis gallstone pancreatitis Brief History Patient is a 36 year old female that is presenting with a one day history of abdominal pain. Patient had been in her usual state of health when she had a sudden increase in abdominal pain with no real inciting factor. Patient had been recently diagnosed with gallstones in [facility] and the patient and her doctors thought it would be best if the patient had her gallbladder removed. Patient was in the process of changing her residence therefore she decided to postpone the surgery for a later date. Patient was not having any problems since her last surgery appointment and was doing relatively well. However yesterday she had a sudden onset of abdominal pain that was later followed by anorexia, nausea, and vomiting. Patient then felt like she was very drained and did not have any energy. Patient has no other complaints at the moment and is otherwise hemodynamically stable. Hospital Course Patient was admitted for pancreatitis supsected from gallstones. Patient was kept on npo status and was given liberal IV fluids. Patients pancreatic enzymes were normalized overnight and the patients pain was improved immensely. Patient was seen by surgery who recommended that the patient have her gallbladder removed to prevent further episodes. Patient was agreeable and proceeded to go to the operating room. Patient tolerated the procedure without difficulty and there were no adverse events. Patient was examined this morning, she felt well, and was able to tolerate a diet. Patient lastly wa seen to have anemia without any obvious blood loss. Patient had labs drawn and she was seen to have iron defiency anemial. Patient will be placed on iron supplmentation on discharge on top of her home meds. Patient is otherwise stable for discharge. General Appearance Alert, Oriented X3, No acute distress HEENT PERRLA, EOMI, Mucous membran moist/pink Lungs Clear to auscultation, Normal air movement Cardiovascular Normal S1, Normal S2, No murmurs Abdomen No tenderness, No hepatospenomegaly Skin No Breakdown, No Significant Lesions Neurological Normal speech, Normal tone, Sensation intact, Cranial nerves 3-12 NL Lab/Imaging Laboratory Tests 04/24 04/24 04/24 04/24 0515 0515 0600 0600 Chemistry Plasma Sodium (136 - 145 mmol/L) 139 Cancelled Plasma Potassium (3.5 - 5.1 mmol/L) 3.9 Cancelled Plasma Chloride (98 - 107 mmol/L) 106 Cancelled CO2 (Enzymatic) (21 - 32 mmol/L) 24 Cancelled BUN (7 - 18 mg/dL) 5 Cancelled Creatinine (0.6 - 1.3 mg/dL) 0.7 Cancelled Est GFR ( Amer) (mL/min) >60 Cancelled Est GFR (Non-Af Amer) (mL/min) >60 Cancelled Glucose (70 - 110 mg/dL) 186 Cancelled Plasma Calcium (8.5 - 10.1 mg/dL) 8.2 Cancelled Iron (35 - 150 ug/dL) 24 Cancelled TIBC (260 - 445 ug/dL) 326 Cancelled Iron Saturation (15 - 50 %) 7 Cancelled Total Bilirubin (0.0 - 1.0 mg/dL) 0.3 AST (15 - 37 U/L) 42 ALT (12 - 78 U/L) 68 Alkaline Phosphatase (46 - 116 U/L) 72 Total Protein (6.4 - 8.2 g/dL) 6.6 Albumin (3.3 - 5.0 g/dL) 2.9 Lipase (73 - 393 U/L) 193 Hematology WBC (4.5 - 11.5 K/uL) 10.5 Cancelled RBC (4.00 - 5.20 M/uL) 3.61 Cancelled Hgb (12.0 - 16.0 gm/dL) 10.2 Cancelled Hct (36.0 - 46.0 %) 31.1 Cancelled MCV (80 - 100 fL) 86 Cancelled MCH (26 - 34 pg) 28 Cancelled RDW (11.6 - 14.8 %) 15.5 Cancelled Neut % (Auto) (50 - 75 %) 61 Cancelled Lymph % (Auto) (25 - 40 %) 31 Cancelled Costilla % (Auto) (3 - 14 %) 3 Cancelled Eos % (Auto) (0 - 4 %) 0 Baso % (Auto) (0 - 2 %) 1 Band Neutrophils % (0 - 8 %) 4 Cancelled Metamyelocytes % (0 - 1 %) 0 Myelocytes (0 - 1 %) 0 Other Cell Type 0 Plt Count, EDTA (150 - 400 K/uL) 328 Cancelled Hypochromic-Microcytic 1+ PUBS MCHC (31 - 37 g/dL) 33 Cancelled Discharge Instructions/Meds - take home medications - adhere to new diet - take new medications as prescribed - follow up with your pmd at discharge
[2016-04-24] MEDS ORDERED: IRON325 MG PO (09:23)
== END 2016-04-24 10:30 | disposition home or self-care (01) | DRG 419 ==
LOC: ED SRH 17:31 → ACUTE2 SRH 20:05 → TRANS SRH 20:05 → ACUTE2 SRH 21:48
PROVIDERS: Surgery; ADMIT Internal Medicine
PROC: BF101ZZ Fluoroscopy of Bile Ducts using Low Osmolar Contrast (ICD-10-PCS; principal; 2016-04-23 14:00)
PROC: 0FT44ZZ Resection of Gallbladder, Percutaneous Endoscopic Approach (ICD-10-PCS; principal; 2016-04-23 14:00)
PROC: 0FC84ZZ Extirpation of Matter from Cystic Duct, Percutaneous Endoscopic Approach (ICD-10-PCS; principal; 2016-04-23 14:00)
DX: K85.10 Biliary acute pancreatitis without necrosis or infection (principal); R11.2 Nausea with vomiting, unspecified; K80.20 Calculus of gallbladder without cholecystitis without obstruction; K04.7 Periapical abscess without sinus; E11.9 Type 2 diabetes mellitus without complications; I10 Essential (primary) hypertension; D64.9 Anemia, unspecified; Z79.4 Long term (current) use of insulin
CPT/HCPCS: 50002; 60001; 70002; 80102; 80212; 80248; 82794; 82807; 83339; 83348; 83587; 83920; 83937; 83982; 84038; 90004; 90074; 90098; 90100; 90197; 91295; 92235; 92668; 92670; 92720; 94060; 95059; 95061